=== PATIENT | male | born 1955 | race Caucasian/White ===

== ENCOUNTER → 2019-06-04 | Outpatient (CLI) | payer MEDICARE ==
--- NOTE | 2019-06-04 17:01 | RAD ---
CHEST PA LATERAL History: Shortness of breath, cough Comparison: None. Findings: Frontal and lateral views of the chest were obtained. The cardiomediastinal silhouette is normal. Pulmonary vasculature is normal. Anterior right lung basilar nodular density measuring 3.8 cm longitudinal by 2.1 cm transverse by 4.3 cm longitudinal is present. No pleural effusion or pneumothorax is seen. There is no acute bone abnormality. Old right fifth and sixth rib fractures are present. IMPRESSION: Right lung base nodular density. Findings are of concern for mass lesion. CT chest with contrast if able is recommended for further assessment. Dr. Coley was informed on 06/04/2019 at 4: 4:58 PM. Electronically signed by: Reji Quinn MD (06/04/2019 4:58 PM) [id number]
== END | disposition home or self-care (01) ==
LOC: DXRAD 14:13
PROVIDERS: ATTEND Internal Medicine
DX: R05 Cough (principal)
CPT/HCPCS: 71046